=== PATIENT | female | born 1970 | race American Indian/Alaskan Native ===

== ENCOUNTER 2016-11-04 20:26 | Observation (INO) | payer BC ==
[2016-11-04 20:26] VITALS: BMI 39.1
--- NOTE | 2016-11-04 21:14 | ED PDOC ---
Arrival/HPI - General Chief Complaint: Chest Pain Time Seen by Provider: 11/04/16 20:37 Historian: Patient - History of Present Illness Narrative History of Present Illness (Text): 11/04/16 20:50 Denita Ortiz is a 44 year old female, whose PMHx includes hypertension , asthma, and chronic lower extremity swelling, who presents to the ED complaining of bilateral lower extremity today. Patient reports associated shortness of breath and chest pain. Patient denies any fever, chills, nausea, vomiting, diarrhea, urinary symptoms, back pain, neck pain, headache, dizziness , or any other complaints. Symptom Onset: Gradual Symptom Course: Unchanged Activities at Onset: Rest, Light Context: Home Past Medical History - Provider Review Nursing Documentation Reviewed: Yes - Past History Past History: No Previous - Infectious Disease Hx of Infectious Diseases: None - Tetanus Immunization Tetanus Immunization: Unknown - Cardiac Hx Cardiac Disorders: No Other/Comment: cardiac cath - Pulmonary Hx Asthma: Yes - Neurological Hx Neurological Disorder: No - HEENT Hx HEENT Disorder: No - Renal Hx Renal Disorder: No - Hematological/Oncological Hx Blood Disorders: No Hx Anemia: Yes - Integumentary Hx Dermatological Disorder: No Other/Comment: skin ca - Musculoskeletal/Rheumatological Hx Musculoskeletal Disorders: No Hx Back Pain: Yes Hx Herniated Disk: Yes - Gastrointestinal Hx Gastroesophageal Reflux: Yes - Genitourinary/Gynecological Hx Genitourinary Disorders: No - Psychiatric Hx Depression: No Hx Emotional Abuse: No Hx Physical Abuse: No Hx Substance Use: No - Surgical History Hx Cardiac Catheterization: Yes Hx Hysterectomy: Yes Hx Orthopedic Surgery: Yes (L FOOT) - Anesthesia Hx Anesthesia: Yes Hx Anesthesia Reactions: No Hx Malignant Hyperthermia: No - Suicidal Assessment Feels Threatened In Home Enviroment: No Family/Social History - Physician Review Nursing Documentation Reviewed: Yes Family/Social History: Unknown Family HX Smoking Status: Never Smoked Hx Alcohol Use: No Hx Substance Use: No Hx Substance Use Treatment: No Allergies/Home Meds Allergies/Adverse Reactions: Allergies adhesive Allergy (Verified 11/04/16 20:36) RASH mushroom Adverse Reaction (Verified 11/04/16 20:36) SHORTNESS OF BREATH Home Medications: Home Meds Medication Instructions Recorded Confirmed Furosemide [Lasix] 20 mg PO DAILY 11/04/16 11/04/16 Losartan [Cozaar] 50 mg PO DAILY 11/04/16 11/04/16 Review of Systems - Physician Review All systems were reviewed & negative as marked: Yes - Review of Systems Constitutional: Normal. absent: Fevers Eyes: Normal ENT: Normal Respiratory: SOB. absent: Cough Cardiovascular: Chest Pain Gastrointestinal: Normal. absent: Abdominal Pain, Diarrhea, Nausea, Vomiting Genitourinary Female: Normal. absent: Dysuria, Frequency, Hematuria, Urine Output Changes Musculoskeletal: Other (+bilateral lower extremity swelling). absent: Back Pain , Neck Pain Skin: Normal Neurological: Normal. absent: Headache, Dizziness Endocrine: Normal Hemo/Lymphatic: Normal Psychiatric: Normal Physical Exam Vital Signs Reviewed: Yes Vital Signs Temp Pulse Resp BP Pulse Ox 11/05/16 01:58 82 17 157/99 H 99 11/05/16 01:08 153/86 H 11/05/16 00:32 81 17 149/95 H 100 11/04/16 22:26 98.7 F 76 20 143/78 100 11/04/16 20:32 98.3 F 101 H 20 162/101 H 98 Temperature: Afebrile Blood Pressure: Hypertensive Pulse: Regular Respiratory Rate: Normal Appearance: Positive for: Well-Appearing, Non-Toxic, Comfortable Pain Distress: None Mental Status: Positive for: Alert and Oriented X 3 - Systems Exam Head: Present: Atraumatic, Normocephalic Pupils: Present: PERRL Extroacular Muscles: Present: EOMI Conjunctiva: Present: Normal Mouth: Present: Moist Mucous Membranes Neck: Present: Normal Range of Motion Respiratory/Chest: Present: Clear to Auscultation, Good Air Exchange. No: Respiratory Distress, Accessory Muscle Use Cardiovascular: Present: Regular Rate and Rhythm, Normal S1, S2. No: Murmurs Abdomen: Present: Normal Bowel Sounds. No: Tenderness, Distention, Peritoneal Signs Back: Present: Normal Inspection Upper Extremity: Present: Normal Inspection. No: Cyanosis, Edema Lower Extremity: Present: Edema (Bilateral ankle +1 edema), NORMAL PULSES, Normal ROM, Capillary Refill < 2 s. No: Erythema, Deformity Neurological: Present: GCS=15, CN II-XII Intact, Speech Normal Skin: Present: Warm, Dry, Normal Color. No: Rashes Psychiatric: Present: Alert, Oriented x 3, Normal Insight, Normal Concentration Medical Decision Making ED Course and Treatment: 11/04/16 20:50 Impression: 45 year female complaining of complaining of bilateral lower extremity swelling , chest pain, and shortness of breath. Differential Diagnosis included but are not limited to: PE vs. ACS vs. chest pain vs. lower extremity edema vs. DVT Plan: -- EKG -- Chest X-ray -- Labs, cardiac enzymes, D-Dimer -- Urinalysis -- Reassess and disposition Prior Visits: Notes and results from previous visits were reviewed. On 05/30/2015, pt was seen in the Emergency department for chest pain, dyspnea on exertion, and bilateral lower extremity pain. Pt was admitted to the hospital for further evaluation. Progress Notes: Reviewed EKG, NSR at 92 bpm[address] Non-specific ST/ T wave changes. 11/04/16 22:50 D-dimer: 0.97. CTA Chest ordered. 11/05/16 00:08 Reviewed radiology, CTA Chest shows: Normal chest CTA. No pulmonary embolism. 11/05/16 01:[address] Villarreal, who is aware and agrees with plan. Pt will go to Telemetry observation for chest pain and edema under Dr. Iglesias' service. residential construction instructor paged. US Duplex Lower Extremities ordered. Pt is no acute distress. Discussed results and hospital observation with pt, who is aware and verbalizes understanding. 11/05/16 01:12 Case discussed with front office medical assistant office professional, who is aware and agrees with plan. 11/05/16 01:52 Reviewed sono, US Duplex Lower Extremities are negative for DVT. - Lab Interpretations Lab Results: 11/04/16 21:30 11/04/16 21:30 Lab Results 11/04/16 21:40: Urine HCG, Qual Negative 11/04/16 21:40: Urine Color Yellow, Urine Appearance Sl cloudy, Urine pH 7.0, Ur Specific Rio 1.020, Urine Protein Trace H, Urine Glucose (UA) Negative, Urine Ketones Trace H, Urine Blood Negative, Urine Nitrate Negative, Urine Bilirubin Negative, Urine Urobilinogen 1.0 H, Ur Leukocyte Esterase Negative, Urine RBC Negative, Urine WBC 1 - 3, Ur Epithelial Cells 10 - 12, Urine Bacteria Few 11/04/16 21:30: Sodium 138, Potassium 3.5 L, Chloride 104, Carbon Dioxide 27, Anion Gap 11, BUN 7, Creatinine 0.7, Est GFR ( Amer) > 60, Est GFR (Non- Af Amer) > 60, Random Glucose 87, Calcium 8.5, Magnesium 1.6 L, Total Bilirubin 0.7, AST 22, ALT 28, Alkaline Phosphatase 58, Lactate Dehydrogenase 514, Total Creatine Kinase 168, Troponin I < 0.01, Total Protein 7.1, Albumin 3.4, Globulin 3.8, Albumin/Globulin Ratio 0.9 L 11/04/16 21:30: PT 10.7, INR 0.99, APTT 26.5, D-Dimer, Quantitative 0.97 H 11/04/16 21:30: WBC 7.4 D, RBC 3.91, Hgb 9.4 L, Hct 29.3 L, MCV 74.9 L, MCH 24.0 L, MCHC 32.1, RDW 16.5 H, Plt Count 273, MPV 9.6, Gran % 54.2, Lymph % ( Auto) 33.2, Hardin % (Auto) 9.6 H, Eos % (Auto) 2.7, Baso % (Auto) 0.3, Gran # 4.03, Lymph # 2.5, Hardin # 0.7 H, Eos # 0.2, Baso # 0.02 I have reviewed the lab results: Yes - RAD Interpretation Narrative RAD Interpretations (Text): CTA Chest shows: Pulmonary arteries: No acute findings. No pulmonary embolism. Aorta: No acute findings. No thoracic aortic aneurysm. Lungs: No acute findings. No mass. No consolidation. Pleural space: No acute findings. No significant effusion. No pneumothorax. Heart: No acute findings. No cardiomegaly. No significant pericardial effusion. No evidence of RV dysfunction. Bones/joints: No acute fracture. No dislocation. Soft tissues: No acute findings. Lymph nodes: No acute findings. No enlarged lymph nodes. IMPRESSION: Normal chest CTA. No pulmonary embolism. Radiology Orders: 11/04/16 22:50 ANGIO CHEST PE PROTOCOL [CT] Stat 11/05/16 01:11 DUPLEX LOWER EXTRM VEIN BILAT [US] Stat Caustic Mixer: Radiologist - EKG Interpretation EKG Interpretation (Text): EKG: Ordered, reviewed, and independently interpreted the EKG. Rate : 92 BPM Rhythm : NSR Interpretation : Non-specific ST/ T wave changes. Comparison : No acute change from previous EKG on 05/31/2015. Interpreted by ED Physician: Yes Type: 12 lead EKG - Medication Orders Current Medication Orders: Discontinued Medications Acetaminophen (Tylenol 325mg Tab) 650 mg PO Q4H PRN PRN Reason: Headache Last Admin: 11/05/16 05:34 Dose: 650 mg Albuterol/Ipratropium (Duoneb 3 Mg/0.5 Mg (3 Ml) Ud) 3 ml IH Q2H PRN PRN Reason: Shortness of Breath Last Admin: 11/05/16 10:35 Dose: 3 ml Enoxaparin Sodium (Lovenox) 40 mg SC DAILY KASHMIR PRN Reason: Protocol Last Admin: 11/05/16 10:36 Dose: Not Given Non-Admin Reason: Patient Refused Furosemide (Lasix) 20 mg IVP ONCE ONE Stop: 11/05/16 00:50 Last Admin: 11/05/16 01:08 Dose: 20 mg Furosemide (Lasix) 20 mg IVP ONCE ONE Stop: 11/05/16 03:22 Last Admin: 11/05/16 04:05 Dose: 20 mg Furosemide (Lasix) 40 mg IVP ONCE ONE Stop: 11/05/16 12:28 Last Admin: 11/05/16 13:06 Dose: 40 mg Magnesium Sulfate/Dextrose (Magnesium Sulfate 1 Gm/100 Ml D5w) 1 gm in 100 mls @ 100 mls/hr IVPB ONCE ONE Stop: 11/05/16 03:39 Last Admin: 11/05/16 04:06 Dose: 100 mls/hr Iohexol (Omnipaque 350 100 Ml) Confirm Administered Dose 350 mg .ROUTE .STK-MED ONE Stop: 11/04/16 23:01 Losartan Potassium (Cozaar) 50 mg PO DAILY [facility] Last Admin: 11/05/16 10:21 Dose: 50 mg Magnesium Oxide (Mag-Ox) 400 mg PO STAT STA Stop: 11/04/16 23:45 Last Admin: 11/05/16 00:01 Dose: 400 mg Pantoprazole Sodium (Protonix Ec Tab) 40 mg PO 0600 [facility] Last Admin: 11/05/16 05:20 Dose: 40 mg Potassium Chloride (K-Dur 20 Meq Er Tab) 40 meq PO STAT STA Stop: 11/04/16 23:45 Last Admin: 11/04/16 23:53 Dose: 40 meq Potassium Chloride (Potassium Chloride Oral Soln) 40 meq PO ONCE ONE Stop: 11/05/16 12:28 Last Admin: 11/05/16 13:06 Dose: 40 meq - Scribe Statement The provider has reviewed the documentation as recorded by the Nguyen Olivo Provider Attestation: All medical record entries made by the Nguyen were at my direction and personally dictated by me. I have reviewed the chart and agree that the record accurately reflects my personal performance of the history, physical exam, medical decision making, and the department course for this patient. I have also personally directed, reviewed, and agree with the discharge instructions and disposition. Disposition/Present on Arrival - Present on Arrival Any Indicators Present on Arrival: No History of DVT/PE: No History of Uncontrolled Diabetes: No Urinary Catheter: No History of Decub. Ulcer: No History Surgical Site Infection Following: None - Disposition Have Diagnosis and Disposition been Completed?: Yes Diagnosis: Chest pain Disposition: HOSPITALIZED Disposition Time: 01:10 Condition: GOOD
[2016-11-04 21:48] LABS: BASO # 0.02 K/mm3 (0.0-2.0); BASO % 0.3 % (0.0-3.0); EOS # 0.2 (0.0-0.7); EOS % 2.7 % (1.5-5.0); GRAN # 4.03 (1.4-6.5); GRAN % 54.2 % (50.0-68.0); HEMOGLOBIN 9.4 gm/dL (12.0-16.0); LYMPH # 2.5 (1.2-3.4); LYMPH % 33.2 % (22.0-35.0); MEAN CELL VOLUME 74.9 fL (80.0-105.0); MEAN CORPUSCULAR HGB CONC 32.1 g/dl (31.0-37.0); MEAN PLATELET VOLUME 9.6 fl (7.0-11.0); MONO # 0.7 (0.1-0.6); MONO % 9.6 % (1.0-6.0); PLATELET COUNT 273 10^3/uL (120.0-450.0); RBC 3.91 10^6/uL (3.5-6.1); RED CELL DISTRIBUTION WIDTH 16.5 % (11.5-14.5); WHITE BLOOD COUNT 7.4 10^3/ul (4.5-11.0)
[2016-11-04 21:55] LABS: INR 0.99 (0.93-1.08); PARTIAL THROMBOPLASTIN TIME 26.5 Seconds (23.7-30.8); PROTHROMBIN TIME 10.7 Seconds (9.9-11.8)
[2016-11-04 21:56] LABS: ALB/GLOB RATIO 0.9 (1.1-1.8); ALBUMIN 3.4 g/dL (3.0-4.8); ALT/SGPT 28 U/L (7-56); AST/SGOT 22 U/L (15-39); BLOOD UREA NITROGEN 7 mg/dL (7-21); CALCIUM 8.5 mg/dL (8.4-10.5); GFR AFRICAN-AMERICAN > 60; GFR NON-AFRICAN AMERICAN > 60; MAGNESIUM 1.6 mg/dL (1.7-2.2)
[2016-11-04 22:11] LABS: TROPONIN I < 0.01 ng/mL
[2016-11-04 22:11] LABS: URINE BILIRUBIN NEGATIVE (NEGATIVE); URINE BLOOD NEGATIVE (NEGATIVE); URINE GLUCOSE (UA) NEGATIVE (NEGATIVE); URINE LEUKOCYTE ESTERASE NEGATIVE Leu/uL (NEGATIVE); URINE NITRATE NEGATIVE (NEGATIVE); URINE PROTEIN TRACE mg/dL (<30 mg/dL)
[2016-11-04 22:12] LABS: URINE APPEARANCE SL CLOUDY (CLEAR); URINE COLOR YELLOW (YELLOW)
[2016-11-04 22:18] LABS: URINE BACTERIA FEW (NEG); URINE RBC NEGATIVE /hpf (0-2)
[2016-11-04 22:24] LABS: D DIMER 0.97 mg/L FEU (0-0.50)
[2016-11-04] MEDS ORDERED: Iohexol 350 MG/100 ML VIAL ONE (23:00)
[2016-11-04] MEDS ORDERED: Potassium Chloride 20 mEq ER Tab PO STA (23:44)
[2016-11-04] MEDS ORDERED: Magnesium Oxide 400 mg Tab UD PO STA (23:44)
[2016-11-05 01:59] VITALS: O2SAT 99
[2016-11-05] MEDS ORDERED: Magnesium Sulfate 1 gm in D5W 1 GM/100 ML BAG IVPB ONE (02:40)
--- NOTE | 2016-11-05 03:10 | CP.PCM.HP ---
Addendum entered and electronically signed by Jerman Sarabia DO 11/05/16 15:29: Patient was seen and examined, major improvement after lasix administration in both her rales and her LE edema. Patient symptomatically improved, Discussed her condition at length. Will increase to furosemide 40mg po qd and add 20mEq KCl tablet. Scripts given. Patient will be following up with her PCP in [place]. Jerman Sarabia D.O. PGY-2 Original Note: <Russell Robledo - Last Filed: 11/05/16 03:26> History of Present Illness - History of Present Illness History of Present Illness: 45 F with pmh of anemia, HTN, asthma, reportedly recent cardiac cath earlier this year that was normal presents to the ED with shortness of breath, and bilateral lower extremity edema. Pt states that her symptoms started 2 days ago and has gotten progressively worse. She also complains of some chest discomfort she denies any radiation of the pain. She states that she normally sleeps on 2- 3 pillows at night. She is able to ambulate 1 block before getting shortness of breath. She denies waking up at night short of breath. Denies any prolong or recent travel. She denies any [place], dizziness, fever, chills, +sob, + cp, abd pain, n/v/d, urinary or bm changes. PMH: HTN, Asthma PSH: cardiac cath 06/16 (in [place]) reportadly normal, Hysterectomy 05/16 Med: Refer to [facility]: adehesive mushroom SH: Denies smoking alcohol or drug abuse history. FH: HTN and DM runs extensively in the family, father passed from stomach cancer , mother with blood clot in leg Present on Admission - Present on Admission Any Indicators Present on Admission: No Review of Systems - Review of Systems All systems: reviewed and no additional remarkable complaints except (HPI) Past Patient History - Infectious Disease Hx of Infectious Diseases: None - Tetanus Immunizations Tetanus Immunization: Unknown - Past Medical History & Family History Past Medical History?: Yes - Past Social History Smoking Status: Never Smoked - CARDIAC Hx Cardiac Disorders: No Other/Comment: cardiac cath - PULMONARY Hx Asthma: Yes - NEUROLOGICAL Hx Neurological Disorder: No - HEENT Hx HEENT Problems: No - RENAL Hx Chronic Kidney Disease: No - HEMATOLOGICAL/ONCOLOGICAL Hx Blood Disorders: No Hx Anemia: Yes - INTEGUMENTARY Hx Dermatological Problems: No Other/Comment: skin ca - MUSCULOSKELETAL/RHEUMATOLOGICAL Hx Musculoskeletal Disorders: No Hx Back Pain: Yes Hx Herniated Disk: Yes - GASTROINTESTINAL Hx Gastroesophageal Reflux: Yes - GENITOURINARY/GYNECOLOGICAL Hx Genitourinary Disorders: No - PSYCHIATRIC Hx Depression: No Hx Emotional Abuse: No Hx Physical Abuse: No Hx Substance Use: No - SURGICAL HISTORY Hx Cardiac Catheterization: Yes Hx Hysterectomy: Yes Hx Orthopedic Surgery: Yes (L FOOT) - ANESTHESIA Hx Anesthesia: Yes Hx Anesthesia Reactions: No Hx Malignant Hyperthermia: No Meds Allergies/Adverse Reactions: Allergies Allergy/AdvReac Type Severity Reaction Status Date / Time adhesive Allergy RASH Verified 11/04/16 20:36 mushroom AdvReac SHORTNESS Verified 11/04/16 20:36 OF BREATH Physical Exam - Constitutional Appears: No Acute Distress - Head Exam Head Exam: ATRAUMATIC, NORMAL INSPECTION, NORMOCEPHALIC - Eye Exam Eye Exam: EOMI, Normal appearance, PERRL Pupil Exam: NORMAL ACCOMODATION, PERRL - ENT Exam ENT Exam: Mucous Membranes Moist, Normal Exam - Neck Exam Neck exam: Positive for: Normal Inspection - Respiratory Exam Respiratory Exam: Clear to Auscultation Bilateral, Rales, NORMAL BREATHING PATTERN. absent: Wheezes Additional comments: b/l bases - Cardiovascular Exam Cardiovascular Exam: REGULAR RHYTHM, RRR, +S1, +S2 - GI/Abdominal Exam GI & Abdominal Exam: Normal Bowel Sounds, Soft. absent: Tenderness - Extremities Exam Extremities exam: Positive for: normal inspection - Back Exam Back exam: NORMAL INSPECTION - Neurological Exam Neurological exam: Alert, CN II-XII Intact, Oriented x3, Reflexes Normal - Psychiatric Exam Psychiatric exam: Normal Affect, Normal Mood - Skin Skin Exam: Dry, Intact, Normal Color, Warm Results - Vital Signs Recent Vital Signs: Last Vital Signs Temp 98.7 F 11/04/16 22:26 Pulse 82 11/05/16 01:58 Resp 17 11/05/16 01:58 BP 157/99 H 11/05/16 01:58 Pulse Ox 99 11/05/16 01:58 - Labs Result Diagrams: 11/04/16 21:30 11/04/16 21:30 Assessment & Plan - Assessment and Plan (Free Text) Assessment: 45 F with pmh of anemia, HTN, asthma, recent cardiac cath earlier this year reportedly normal presents to the ED with shortness of breath, and bilateral lower extremity edema. 1. Shortness of breath likely 2/2 CHF exacerbation vs COPD / asthma - Duoneb Q2H PRN - O2 supplementation as needed - trops x 1 negative - Serial trops - lasix 20meq stat in the ED - Lasix 20meq stat - US ext - prelim report negative for DVts - Elevated D dimer .97 - CT chest - negative for PE - Echo ordered for AM - I and O - Daily weights - AM labs 2. HTN - Cont home meds - Total of Lasix 40meq IVP stat 3. Hypokalemia - K of 3.5 - KCl 40meq PO stat in the ED 4. Hypomag - Mg of 1.6 - 400mg of mag ox stat in the ED - 1 gram og Mg sulphate stat - cont to monitor 5. Anemia - Hb of 8.4 - Close to her baseline - Will order anemia work up 6. GI/DVT ppx - Protonix and Lovenox Case was reviewed and discussed in detail with Dr Villarreal. <George Villarreal - Last Filed: 11/20/16 16:55> Results - Vital Signs Recent Vital Signs: Last Vital Signs Temp 98.5 F 11/05/16 11:42 Pulse 97 H 11/05/16 14:00 Resp 18 11/05/16 11:42 BP 135/82 11/05/16 13:06 Pulse Ox 99 11/05/16 06:00 - Labs Result Diagrams: 11/05/16 07:30 11/05/16 07:30 Attending/Attestation - Attestation I have personally seen and examined this patient.: Yes I have fully participated in the care of the patient.: Yes I have reviewed all pertinent clinical information: Yes Notes (Text): 11/20/16 16:55 Medical record note made by the resident after discussion with my direction and input after the patient was personally seen and examined by me. I have reviewed the chart and agree that the record accurately reflects by personal performance of the history, physical exam, data review, and medical decision-making, in the course for the patient. I have also personally directed the plan of care.
[2016-11-05] MEDS ORDERED: Albuterol-Ipratrop 3 mg / 0.5 (3 ml) UD IH PRN (03:22)
[2016-11-05] MEDS ORDERED: Pantoprazole 40 mg EC Tab PO SCH (06:00)
[2016-11-05 08:10] LABS: BASO # 0.02 K/mm3 (0.0-2.0); BASO % 0.3 % (0.0-3.0); EOS # 0.1 (0.0-0.7); EOS % 1.8 % (1.5-5.0); GRAN # 3.35 (1.4-6.5); GRAN % 55.9 % (50.0-68.0); HEMOGLOBIN 9.9 gm/dL (12.0-16.0); LYMPH # 1.8 (1.2-3.4); LYMPH % 30.5 % (22.0-35.0); MEAN CELL VOLUME 75.2 fL (80.0-105.0); MEAN CORPUSCULAR HGB CONC 31.9 g/dl (31.0-37.0); MEAN PLATELET VOLUME 9.5 fl (7.0-11.0); MONO # 0.7 (0.1-0.6); MONO % 11.5 % (1.0-6.0); PLATELET COUNT 257 10^3/uL (120.0-450.0); RBC 4.12 10^6/uL (3.5-6.1); RED CELL DISTRIBUTION WIDTH 16.5 % (11.5-14.5)
[2016-11-05 08:26] LABS: ALB/GLOB RATIO 0.9 (1.1-1.8); ALBUMIN 3.6 g/dL (3.0-4.8); ALT/SGPT 36 U/L (7-56); AST/SGOT 26 U/L (15-39); BLOOD UREA NITROGEN 6 mg/dL (7-21); CALCIUM 8.7 mg/dL (8.4-10.5); GFR AFRICAN-AMERICAN > 60; GFR NON-AFRICAN AMERICAN > 60; MAGNESIUM 1.8 mg/dL (1.7-2.2)
[2016-11-05 08:33] LABS: B-TYPE NATRIURETIC PEPTIDE < 11.1 pg/mL (0-450)
[2016-11-05 08:35] LABS: TROPONIN I < 0.01 ng/mL
[2016-11-05 08:41] LABS: % IRON SATURATION 4 % (20-55); IRON 17 ug/dL (45-180); TOTAL IRON BINDING CAPACITY 399 ug/dL (265-497)
--- NOTE | 2016-11-05 08:51 | CARD ---
APPROVED REPORT EKG Measurement Heart [id number] <Conclusion> Normal sinus rhythm Normal ECG No change
[2016-11-05] MEDS: Enoxaparin 40 mg Syringe SC SCH ×2 (10:21→10:36)
[2016-11-05 11:12] LABS: FERRITIN 7.3 ng/mL
--- NOTE | 2016-11-05 11:13 | CT ---
PROCEDURE: CT Chest with contrast (Pulmonary Angiogram) HISTORY: sob COMPARISON: None available. TECHNIQUE: Axial computed tomography images were obtained of the chest in the pulmonary arterial phase of enhancement. Coronal and sagittal reformatted images were created and reviewed. Intravenous contrast dose: 80 cc of Omni 350 Radiation dose: Total exam DLP = 692 mGy-cm. This CT exam was performed using one or more of the following dose reduction techniques: Automated exposure control, adjustment of the mA and/or kV according to patient size, and/or use of iterative reconstruction technique. FINDINGS: PULMONARY ARTERIES: Unremarkable. No pulmonary embolism. AORTA: No acute findings. No thoracic aortic aneurysm. LUNGS: Unremarkable. No nodule, mass or pulmonary consolidation. PLEURAL SPACES: Unremarkable. No effusion or pneuomothorax. HEART: Unremarkable. No cardiomegaly. No significant pericardial effusion. LYMPH NODES: No lymphadenopathy. BONES, CHEST WALL: Unremarkable. No fracture or destructive lesion OTHER FINDINGS: The report concurs with the preliminary [facility] report IMPRESSION: Unremarkable CT pulmonary angiogram. No pulmonary embolus.
[2016-11-05 11:43] VITALS: BP 135/82; RESP 18; TEMP 98.5
[2016-11-05] MEDS ORDERED: Potassium Chloride 40 mEq/30 ml LIQ UD PO ONE (12:27)
[2016-11-05 14:59] VITALS: PULSE 97
--- NOTE | 2016-11-05 18:50 | US ---
HISTORY: Leg pain and swelling. Evaluate for DVT PHYSICIAN(S): Jose Angel Borden MD. TECHNIQUE: Duplex sonography and color-flow Doppler with graded compression were used to evaluate the deep venous systems of both lower extremities. The exam is limited by body habitus. FINDINGS: The visualized deep venous systems of both lower extremities are sonographically normal and compressible. Normal wave forms and augmentation are seen. There is no sonographic evidence for deep venous thrombosis in the visualized segments of both lower extremities. IMPRESSION: No sonographic evidence for deep venous thrombosis in the visualized segments of both lower extremities.
== END 2016-11-05 15:00 | disposition home or self-care (01) ==
LOC: ED 20:26 → ERH 11-05 01:13 → 2RSO 11-05 03:04
PROVIDERS: ADMIT Internal Medicine; ATTEND Internal Medicine
DX: R07.89 Other chest pain (principal); R06.02 Shortness of breath; D64.9 Anemia, unspecified; J45.909 Unspecified asthma, uncomplicated; I10 Essential (primary) hypertension; R60.0 Localized edema; E87.6 Hypokalemia; E83.42 Hypomagnesemia
CPT/HCPCS: 36415; 71275; 80053; 81001; 82550; 82607; 82728; 82746; 83615; 83735; 83880; 84100; 84466; 84484; 84703; 85025; 85378; 85610; 85730; 93005; 93970; 94640; 96374; 99285; G0378; J1940; J3475; J3480; Q9967